=== PATIENT | male | born 1985 | race Caucasian/White ===

== ENCOUNTER 2019-02-04 08:40 | Emergency (ER) | payer MEDICARE, MEDICAID ==
--- NOTE | 2019-02-04 09:11 | EDM.PDOC ---
ED HPI GENERAL MEDICAL PROBLEM - General Chief Complaint: Head Injury Stated Complaint: HIT HEAD, FALL Time Seen by Provider: 02/04/19 08:55 Source of Information: Reports: Patient History Limitations: Reports: No Limitations - History of Present Illness INITIAL COMMENTS - FREE TEXT/NARRATIVE: 34-year-old male who reports that he was working with a friend yesterday and he hit the top of his head against an air conditioning vent at about 11 AM. There was no loss of consciousness. He was a bit dazed. He has had some headache since that time but it was mild. He had no nausea or vomiting or dizziness. This morning and a proximal or 7 AM he was walking and his dog stopped in front of them and the patient hit his head in the same area that he had struck his head yesterday on a speaker. He reports that he felt somewhat dizzy and then the next thing he knows he is laying on the floor about 10 minutes later somewhat dazed with a headache. He has had some nausea but no vomiting. He had some double vision initially but that is resolved. He continues to have dizziness and unsteadiness and he feels as if he might pass out again. No antecedent problems. No chest pain. No shortness of breath. He is rating his headache as a 9/10. It is sharp and throbbing. There is soreness in the area with palpation and he has a small scrape to the area. No localized area of weakness or numbness. He also has some soreness in his posterior neck and see injury. He rates that pain as a 9/10. This is worse with palpation and movement. There are no other associated signs or symptoms. There are no other modifying factors. 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 (see below) (Nothing) top of head Pain Score (Numeric/FACES): 9 - Related Data Allergies Allergy/AdvReac Type Severity Reaction Status Date / Time fentanyl Allergy Unknown unknown Verified 02/04/19 09:02 gabapentin Allergy Unknown unknown Verified 02/04/19 09:02 shellfish derived Allergy Unknown unknown Verified 02/04/19 09:02 varenicline [From Chantix] Allergy Unknown unknown Verified 02/04/19 09:02 Home Meds: Home Meds Meclizine [Antivert] 25 mg PO Q6H PRN #20 tab 02/04/19 [Rx] Promethazine [Phenergan] 25 mg PO Q6H PRN #16 tab 02/04/19 [Rx] amLODIPine [Norvasc] 5 mg PO DAILY 02/04/19 [History] traZODone 100 mg PO PRN 02/04/19 [History] Past Medical History Cardiovascular History: Reports: Hypertension (Also, from the patient's description it sounds like he has vasospastic angina) Psychiatric History: Reports: Other (See Below) (Insomnia) - Past Surgical History Neurological Surgical History: Reports: Spinal Fusion (Anterior cervical fusion) Other Neurological Surgeries/Procedures: Implanted back nerve stimulator Social & Family History - Tobacco Use Smoking Status *Q: Current Every Day Smoker Years of Tobacco use: 30 Packs/Tins Daily: 0.5 - Caffeine Use Caffeine Use: Reports: Coffee, Soda - Alcohol Use Alcohol Use History: Yes Alcohol Use Frequency: Daily - Recreational Drug Use Recreational Drug Use: No - Living Situation & Occupation 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 ED ROS GENERAL - Review of Systems Review Of Systems: See Below Constitutional: Reports: No Symptoms HEENT: Reports: Vision Change (Transient double vision after his injury this morning.) Respiratory: Reports: No Symptoms Cardiovascular: Reports: No Symptoms GI/Abdominal: Reports: Nausea. Denies: Vomiting : Reports: No Symptoms Musculoskeletal: Reports: Neck Pain Skin: Reports: Other (Abrasion on central parietal scalp) Neurological: Reports: Dizziness, Headache, Syncope Hematologic/Lymphatic: Reports: No Symptoms Immunologic: Reports: Other (Last tetanus immunization was greater than 5 years ago.) ED EXAM, HEAD INJURY - Physical Exam Exam: See Below Exam Limited By: No Limitations General Appearance: Alert, WD/WN, Moderate Distress Head: Normocephalic, Scalp Abrasions, Other (No crepitus, depression or bony deformity.) Nexus Criteria: Posterior, Midline Cervical Tenderness, Altered Level of Consciousness (Had loss of consciousness). No: Evidence of Intoxication, Focal Neurological Deficit, Painful Distraction Injuries Eyes: Bilateral Eye: EOMI, Normal Inspection, PERRL Ears: Normal External Exam, Normal Canal, Normal TMs Nose: Normal Inspection, Normal Mucousa, No Blood Throat/Mouth: Normal Inspection, Normal Lips, Normal Oropharynx, Normal Voice, No Airway Compromise Neck: Normal Alignment, Painful Range of Motion, Tender Midline Respiratory: No Respiratory Distress, Lungs Clear, Normal Breath Sounds, No Accessory Muscle Use, Chest Non-Tender Cardiovascular: Normal Peripheral Pulses, Regular Rate, Rhythm, No JVD GI/Abdominal Exam: Normal Bowel Sounds, Soft, Non-Tender, No Mass Back Exam: Normal Inspection Extremities: Normal Inspection, Normal Range of Motion, Non-Tender, No Pedal Edema, Normal Capillary Refill Neurologic: otolaryngology surgeon II-XII nml As Tested, No Motor/Sensory Deficits, Alert, Normal Mood/Affect, Oriented x 3 Skin: Normal Color, Warm/Dry - Wilfredo Coma Score Best Eye Response (Wilfredo): (4) Open Spontaneously Best Verbal Response ([place]): (5) Oriented Best Motor Response (Wilfredo): (6) Obeys Commands Wilfredo Total: 15 EKG INTERPRETATION EKG Date: 02/04/19 Time: 09:26 Rhythm: NSR Rate (Beats/Min): 79 [place]: Normal P-Wave: Present QRS: Normal ST-T: Normal QT: Normal Comparison: NA - No Prior EKG (Essentially normal EKG.) Course - Vital Signs Last Recorded V/S: Last Vital Signs Temp 36.6 C 02/04/19 10:13 Pulse 71 02/04/19 10:13 Resp 14 02/04/19 10:13 BP 111/72 02/04/19 10:13 Pulse Ox 96 02/04/19 10:13 - Orders/Labs/Meds Orders: Active Orders 24 hr Category Date Time Status EKG Documentation Completion [RC] ASDIRECTED Care 02/04/19 09:18 Active Vaccines to be Administered [RC] PER UNIT ROUTINE Care 02/04/19 11:10 Active Cervical Spine wo Cont [CT] Stat Exams 02/04/19 09:17 Taken Head wo Cont [CT] Stat Exams 02/04/19 09:17 Taken Sodium Chloride 0.9% [Saline Flush] Med 02/04/19 09:17 Active 10 ml FLUSH ASDIRECTED PRN Peripheral IV Insertion Adult [OM.PC] Routine Oth 02/04/19 09:17 Ordered EKG 12 Lead [EK] Routine Ther 02/04/19 09:17 Ordered Medication Orders Sodium Chloride (Saline Flush) 10 ml FLUSH ASDIRECTED PRN PRN Reason: Keep Vein Open Last Admin: 02/04/19 11:25 Dose: 10 ml Labs: Laboratory Tests 02/04/19 02/04/19 Range/Units 09:35 09:35 WBC 8.5 (4.5-12.0) X10-3/uL RBC 5.06 (4.30-5.75) x10(6)uL Hgb 15.6 (13.5-17.8) g/dL Hct 46.0 (30.0-51.3) % MCV 90.9 (80-96) fL MCH 30.8 (27.7-33.6) pg MCHC 33.9 (32.2-35.4) g/dL RDW 12.9 (11.5-15.5) % Plt Count 214 (125-369) X10(3)uL MPV 8.0 (7.4-10.4) fL Neut % (Auto) 70.9 (46-82) % Lymph % (Auto) 22.8 (13-37) % [place] % (Auto) 4.9 (4-12) % Eos % (Auto) 1 (1.0-5.0) % Baso % (Auto) 0 (0-2) % Neut # (Auto) 6.1 (1.6-8.3) # Lymph # (Auto) 1.9 (0.6-5.0) # [place] # (Auto) 0.4 (0.0-1.3) # Eos # (Auto) 0.1 (0.0-0.8) # Baso # (Auto) 0.0 (0.0-0.2) # Sodium 144 (135-145) mmol/L Potassium 4.1 (3.5-5.3) mmol/L Chloride 109 (100-110) mmol/L Carbon Dioxide 24 (21-32) mmol/L BUN 16 (7-18) mg/dL Creatinine 1.0 (0.70-1.30) mg/dL Est Cr Clr Drug Dosing 105.07 mL/min Estimated GFR (MDRD) > 60 (>60) BUN/Creatinine Ratio 16.0 (9-20) Glucose 99 (80-116) mg/dL Calcium 8.8 (8.6-10.2) mg/dL Magnesium 2.0 (1.8-2.5) mg/dL Total Bilirubin 0.5 (0.1-1.3) mg/dL AST 28 H (5-25) IU/L ALT 42 H (12-36) U/L Alkaline Phosphatase 81 (56-112) IU/L Total Protein 7.3 (6.0-8.0) g/dL Albumin 4.0 (3.5-5.2) g/dL Globulin 3.3 g/dL Albumin/Globulin Ratio 1.2 Meds: Medications Generic Name Dose Route Start Last Admin Trade Name Freq PRN Reason Stop Dose Admin Sodium Chloride 10 ml 02/04/19 09:17 02/04/19 11:25 Saline Flush FLUSH 10 ml ASDIRECTED PRN Administration Keep Vein Open Discontinued Medications Generic Name Dose Route Start Last Admin Trade Name Freq PRN Reason Stop Dose Admin Diphtheria/Tetanus/Acell Pertussis 0.5 ml 02/04/19 11:10 02/04/19 11:24 Adacel IM 02/04/19 11:11 0.5 ml .ONCE ONE Administration Promethazine HCl 25 mg/ Sodium 51 mls @ 200 mls/hr 02/04/19 09:19 02/04/19 10 :04 Chloride IV 02/04/19 09:34 200 mls/hr ONETIME ONE Administration Sodium Chloride 1,000 mls @ 999 mls/hr 02/04/19 09:19 02/04/19 10:04 Normal Saline IV 02/04/19 10:19 999 mls/hr .BOLUS ONE Administration Ketorolac Tromethamine 30 mg 02/04/19 11:14 02/04/19 11:23 Toradol IVPUSH 02/04/19 11:15 30 mg ONETIME ONE Administration Meclizine HCl 25 mg 02/04/19 11:16 02/04/19 11:24 Antivert PO 02/04/19 11:17 25 mg ONETIME ONE Administration - Radiology Interpretation Free Text/Narrative:: CT scan of head shows no acute abnormality per the [facility] radiologist. CT scan of cervical spine shows previous anterior cervical fusion but no acute abnormality per the [facility] radiologist. - Re-Assessments/Exams Free Text/Narrative Re-Assessment/Exam: 02/04/19 11:15: The patient has remained vitally stable while in the emergency department. CT scans of his head and cervical spine show no acute abnormality and his blood tests are reassuringly normal. His EKG was also normal. Patient has ambulated but was still with some dizziness and unsteadiness. He reports his pain is now a 7-8/10. I will give the patient meclizine PO and Toradol 30 mg IV. 02/04/19 11:40: Patient resting comfortably on the stretcher. His dizziness is much improved. His pain is improved. The plan will be to discharge the patient with scheduled for Zofran and meclizine. He is to take Tylenol and ibuprofen as needed for pain. I have advised him no strenuous activity for the next 2 weeks. Departure - Departure Time of Disposition: 11:45 Disposition: Home, Self-Care 01 Condition: Good Clinical Impression: Concussion with less than 1 hour loss of consciousness, Postconcussive syndrome Scalp abrasion Qualifiers: Encounter type: initial encounter Qualified Code(s): S00.01XA - Abrasion of scalp, initial encounter Head contusion Qualifiers: Encounter type: initial encounter Contusion of head detail: scalp Qualified Code(s): S00.03XA - Contusion of scalp, initial encounter Neck strain Qualifiers: Encounter type: initial encounter Qualified Code(s): S16.1XXA - Strain of muscle, fascia and tendon at neck level, initial encounter - Discharge Information Prescriptions: Meclizine [Antivert] 25 mg PO Q6H PRN #20 tab PRN Reason: Dizziness Promethazine [Phenergan] 25 mg PO Q6H PRN #16 tab PRN Reason: Nausea or dizziness Instructions: Contusion, [id number], Head Injury, Adult, [id number], Cervical Sprain, [id number], Concussion, Adult, [id number], Post-Concussion Syndrome, [id number] Referrals: PCP,Not In Area [Primary Care Provider] - Forms: ED Department Discharge Additional Instructions: Your blood tests were reassuringly normal. Your EKG was normal. The CT scans of your head and neck showed no acute abnormalities. As we discussed, you have had a concussion. The symptoms that you are experiencing are related to the concussion with postconcussive syndrome. You should rest. You should drink plenty of fluids. No strenuous activity for the next 2 weeks. Follow-up with your primary doctor as needed. Take ibuprofen and Tylenol as needed for pain. Medication as prescribed (meclizine 25 mg, Phenergan 25 mg). Back to the emergency department for unrelenting vomiting, marked increase in pain or any other concerning sign or symptom. You were given a Tdap Immunization today to bring your tetanus immunization status up-to-date. - My Orders Last 24 Hours: My Active Orders 02/04/19 09:17 Cervical Spine wo Cont [CT] Stat Head wo Cont [CT] Stat Sodium Chloride 0.9% [Saline Flush] 10 ml FLUSH ASDIRECTED PRN Peripheral IV Insertion Adult [OM.PC] Routine EKG 12 Lead [EK] Routine 02/04/19 09:18 EKG Documentation Completion [RC] ASDIRECTED 02/04/19 11:10 Vaccines to be Administered [RC] PER UNIT ROUTINE - Assessment/Plan Last 24 Hours: My Active Orders 02/04/19 09:17 Cervical Spine wo Cont [CT] Stat Head wo Cont [CT] Stat Sodium Chloride 0.9% [Saline Flush] 10 ml FLUSH ASDIRECTED PRN Peripheral IV Insertion Adult [OM.PC] Routine EKG 12 Lead [EK] Routine 02/04/19 09:18 EKG Documentation Completion [RC] ASDIRECTED 02/04/19 11:10 Vaccines to be Administered [RC] PER UNIT ROUTINE
[2019-02-04] MEDS ORDERED: Sodium Chloride 0.9% 10 ML Syringe FLUSH PRN (09:17)
[2019-02-04] MEDS ORDERED: Promethazine 25 MG in Sodium Chloride 0.9% 50 ML IV ONE (09:19)
[2019-02-04] MEDS ORDERED: Sodium Chloride 0.9% 1,000 ML IV ONE (09:19)
[2019-02-04] MEDS ORDERED: Diphtheria,Pertussis(Acell),Tetanus Vaccine 0.5 ML SDV IM ONE (11:10)
[2019-02-04] MEDS ORDERED: Ketorolac 30 MG/ML SDV IVPUSH ONE (11:14)
[2019-02-04] MEDS ORDERED: Meclizine 25 MG Tab PO ONE (11:16)
== END 2019-02-04 12:05 | disposition home or self-care (01) ==
LOC: FB.ED 08:40
DX: S06.0X9A Concussion with loss of consciousness of unspecified duration, initial encounter (principal); S16.1XXA Strain of muscle, fascia and tendon at neck level, initial encounter; S00.03XA Contusion of scalp, initial encounter; F17.210 Nicotine dependence, cigarettes, uncomplicated; I10 Essential (primary) hypertension; Z79.899 Other long term (current) drug therapy; Z88.8 Allergy status to other drugs, medicaments and biological substances; Z91.013 Allergy to seafood; Z23 Encounter for immunization; W22.8XXA Striking against or struck by other objects, initial encounter
CPT/HCPCS: 36415; 70450; 72125; 80053; 83735; 85025; 90471; 90715; 93005; 96361; 96365; 96375; 99284; A9270; J1885; J2550; J7030; J7050; 93010

== ENCOUNTER 2019-03-29 07:49 | Emergency (ER) | payer MEDICARE, MEDICAID ==
--- NOTE | 2019-03-29 09:40 | EDM.PDOC ---
ED HPI GENERAL MEDICAL PROBLEM - General Chief Complaint: Upper Extremity Injury/Pain Stated Complaint: SHOULDER PAIN Time Seen by Provider: 03/29/19 08:45 Source of Information: Reports: Patient History Limitations: Reports: No Limitations - History of Present Illness INITIAL COMMENTS - FREE TEXT/NARRATIVE: patient is a pleasant 34-year-old male who presents today with concern for pain in his left shoulder over the past month. He reports that one month ago he fell on it, backwards landing on an outstretched hand. He had immediate pain in his shoulder at this time but did not seek any medical care for. He also notes that he walks his dog regularly and the pulls on that side with his leash. 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 He over the last 2 days had to take 4 of ibuprofen up to 3 times a day with no relief. He also notes that his shoulder is locking up and he is having difficulty raising it. Past history of a ACDF, not sure which levels but maybe he thinks 5-7. Also has a nerve stimulator for low pack pain. Recently transferred to the area from [facility], regular tobacco use, occasional social alcohol, no other drug use. 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 Respiratory History: Reports: COPD Musculoskeletal History: Reports: Back Pain, Chronic, Neck Pain, Chronic Neurological History: Reports: Head Trauma Psychiatric History: Reports: Other (See Below) (Insomnia) - Infectious Disease History Infectious Disease History: Reports: Chicken Pox - Past Surgical History Respiratory Surgical History: Reports: None Neurological Surgical History: Reports: Spinal Fusion Other Neurological Surgeries/Procedures: Implanted back nerve stimulator Musculoskeletal Surgical History: Reports: Shoulder Surgery, Other (See Below) Other Musculoskeletal Surgeries/Procedures:: right rotator cuff, nerve stimulator in back Social & Family History - Family History Cardiac: Reports: Angina - Tobacco Use Smoking Status *Q: Current Every Day Smoker - Caffeine Use Caffeine Use: Reports: Coffee, Soda - Alcohol Use Alcohol Use History: Yes Total Drinks Per Week Comment: social - Recreational Drug Use Recreational Drug Use: No - Living Situation & Occupation 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 ED EXAM, GENERAL - Physical Exam Exam: See Below Free Text/Narrative:: Gen.: Alert, pleasant no acute distress. Neck range of motion is limited, particularly with any side bending towards the right but does not exacerbate really any of his arm symptoms. He has very limited mobility in his left shoulder and very much difficulty relaxing and that all for passive motion testing. He is able to flex and extend his fingers, flex and extend his wrist, ABduct his fingers, resisted elbow flexion and extension without much difficulty although it does elicit some pain. He is not able to ABduct against any resistance or passively raise his arm more than about 30. He is not able to tolerate any passive ROM of shoulder. He is able to internally rotate with no resistance but with minimal pain, all other motions cause significant pain. Course - Vital Signs Text/Narrative:: patient with acute on chronic shoulder pain likely related to injury and altered mechanics. Possible rotator cuff tear given presentation today. xray does not show any acute bony abnormalities. recommend off work this week, anti- inflammatories, heat or ice as feels better, and reevaluation towards the end of the week or early next week. Strongly encouraged physical therapy, further management to be determined by follow-up physician. He has a sling at home which she can use if he wants for comfort when moving around. He does not have any muscular weakness on exam today or any atrophy, I think the numbness in his fingertips is related to mechanics and will hopefully resolve as inflammation decreases. He was in agreement with this plan and had no further questions. Last Recorded V/S: Last Vital Signs Temp 36.8 C 03/29/19 07:49 Pulse 97 03/29/19 07:49 Resp 18 03/29/19 07:49 BP 117/73 03/29/19 07:49 Pulse Ox 96 03/29/19 07:49 - Orders/Labs/Meds Orders: Active Orders 24 hr Category Date Time Status Shoulder Comp Lt [CR] Stat Exams 03/29/19 08:50 Taken Departure - Departure Time of Disposition: 09:35 Disposition: Home, Self-Care 01 Condition: Good Clinical Impression: Sprain of shoulder - Discharge Information *PRESCRIPTION DRUG MONITORING PROGRAM REVIEWED*: Yes *COPY OF PRESCRIPTION DRUG MONITORING REPORT IN PATIENT TURNER: No Instructions: Shoulder Sprain Referrals: PCP,None [Primary Care Provider] - Forms: ED Department Discharge, ED Return to Work/School Form Additional Instructions: can take ibuprofen 600-800mg (3-4 tabs) up to three times per day as long as no heartburn ok to take tylenol per bottle instructions along with this if needed ice 20 min as often as need (every 1-3 hours) warmth ok - shower is usually the best work note provided - need followup prior to returning sling as needed for comfort, but have out of sling when moving around a little to help keep from freezing joint NO LIFTING OR PULLING anything heavier than a pencil (need to walk dog with other arm) followup or Friday with PCP - see information given - My Orders Last 24 Hours: My Active Orders 03/29/19 08:50 Shoulder Comp Lt [CR] Stat - Assessment/Plan Last 24 Hours: My Active Orders 03/29/19 08:50 Shoulder Comp Lt [CR] Stat
--- NOTE | 2019-03-30 09:30 | CR ---
INDICATION: One month of pain, fall, limited mobility. LEFT SHOULDER: Four views of the left shoulder were obtained, 03/29/19, and revealed no evidence of a fracture, dislocation, or other significant bone or joint abnormality. Adjacent ribs were intact. If symptoms persist, if occult abnormality is suspected clinically, additional examination such as MRI of the shoulder may be helpful. MTDD
== END 2019-03-29 10:22 | disposition home or self-care (01) ==
LOC: FB.ED 07:49
DX: S43.402A Unspecified sprain of left shoulder joint, initial encounter (principal); I10 Essential (primary) hypertension; F17.210 Nicotine dependence, cigarettes, uncomplicated; Z91.013 Allergy to seafood; Z88.8 Allergy status to other drugs, medicaments and biological substances; Z79.899 Other long term (current) drug therapy; W19.XXXA Unspecified fall, initial encounter
CPT/HCPCS: 73030-LT; 99283-25

== ENCOUNTER 2019-07-26 12:46 | Emergency (ER) | payer MEDICARE, MEDICAID ==
[2019-07-26] MEDS ORDERED: Aspirin 81 MG Tab.Chew PO ONE (12:55)
[2019-07-26] MEDS ORDERED: Ketorolac 60 MG/2 ML SDV IM ONE (13:04)
--- NOTE | 2019-07-26 13:52 | EDM.PDOC ---
ED HPI GENERAL MEDICAL PROBLEM - General Stated Complaint: CHEST PAIN Time Seen by Provider: 07/26/19 12:50 Source of Information: Reports: Patient History Limitations: Reports: No Limitations - History of Present Illness INITIAL COMMENTS - FREE TEXT/NARRATIVE: Patient presented to the ED because of left sided chest pain which started this morning. The pain is ahrp,4/10 and worse with coughing and movements. There is no associated, N/V dyspnea or diaphoresis. chest pain Pain Score (Numeric/FACES): 10 - Related Data Allergies Allergy/AdvReac Type Severity Reaction Status Date / Time fentanyl Allergy Unknown unknown Verified 06/23/19 10:07 gabapentin Allergy Unknown unknown Verified 06/23/19 10:07 shellfish derived Allergy Unknown unknown Verified 06/23/19 10:07 varenicline [From Chantix] Allergy Unknown unknown Verified 06/23/19 10:07 Home Meds: Home Meds Promethazine [Phenergan] 25 mg PO Q6H PRN #16 tab 02/04/19 [Rx] amLODIPine [Norvasc] 5 mg PO DAILY 02/04/19 [History] Naproxen 500 mg PO BID #15 tablet 07/26/19 [Rx] Past Medical History Cardiovascular History: Reports: Hypertension 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 Respiratory History: Reports: COPD Musculoskeletal History: Reports: Back Pain, Chronic, Neck Pain, Chronic Neurological History: Reports: Head Trauma Psychiatric History: Reports: Other (See Below) (Insomnia) - Infectious Disease History Infectious Disease History: Reports: Chicken Pox - Past Surgical History Respiratory Surgical History: Reports: None Neurological Surgical History: Reports: Spinal Fusion Other Neurological Surgeries/Procedures: Implanted back nerve stimulator Musculoskeletal Surgical History: Reports: Shoulder Surgery, Other (See Below) Other Musculoskeletal Surgeries/Procedures:: right rotator cuff, nerve stimulator in back Social & Family History - Family History Cardiac: Reports: Angina - Caffeine Use Caffeine Use: Reports: Coffee, Soda - Living Situation & Occupation 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 GENERAL - Review of Systems Review Of Systems: See Below Constitutional: Reports: No Symptoms HEENT: Reports: No Symptoms Respiratory: Reports: Cough Cardiovascular: Reports: Chest Pain Endocrine: Reports: No Symptoms GI/Abdominal: Reports: No Symptoms : Reports: No Symptoms Musculoskeletal: Reports: No Symptoms Skin: Reports: No Symptoms Neurological: Reports: No Symptoms Psychiatric: Reports: No Symptoms Hematologic/Lymphatic: Reports: No Symptoms Immunologic: Reports: No Symptoms ED EXAM, GENERAL - Physical Exam Exam: See Below Exam Limited By: No Limitations General Appearance: Alert, WD/WN, No Apparent Distress Ears: Normal External Exam, Normal Canal Nose: Normal Inspection, Normal Mucosa Throat/Mouth: Normal Inspection, Normal Lips, Normal Teeth Head: Atraumatic, Normocephalic Neck: Normal Inspection, Supple, Non-Tender Respiratory/Chest: No Respiratory Distress, Lungs Clear, Normal Breath Sounds, No Accessory Muscle Use, Other (tenderness left chest wall) Cardiovascular: Normal Peripheral Pulses, Regular Rate, Rhythm, No Edema, No Gallop, No JVD, No Murmur, No Rub GI/Abdominal: Normal Bowel Sounds, Soft, Non-Tender, No Organomegaly, No Distention, No Abnormal Bruit, No Mass, Pelvis Stable Back Exam: Normal Inspection, Full Range of Motion Extremities: Normal Inspection, Normal Range of Motion, Non-Tender Neurological: Alert, Oriented, CN II-XII Intact, Normal Cognition, Normal Gait, Normal Reflexes, No Motor/Sensory Deficits Course - Vital Signs Text/Narrative:: labs,EKG was discussed with the patient and verbalized full understanding EKG-NSR Trop-neg toradol 60 mg IM x1 with significant relief of his pain ASA 324 mg po x1 Last Recorded V/S: Last Vital Signs Temp 36.7 C 07/26/19 13:45 Pulse 95 07/26/19 13:45 Resp 15 07/26/19 13:45 BP 122/78 07/26/19 13:45 Pulse Ox 98 07/26/19 12:46 - Orders/Labs/Meds Orders: Active Orders 24 hr Category Date Time Status EKG Documentation Completion [RC] ASDIRECTED Care 07/26/19 12:54 Active EKG 12 Lead [EK] Routine Ther 07/26/19 12:54 Ordered Labs: Laboratory Tests 07/26/19 07/26/19 07/26/19 Range/Units 13:05 13:05 13:05 WBC 7.8 (4.5-12.0) X10-3/uL RBC 5.24 (4.30-5.75) x10(6)uL Hgb 16.0 (13.5-17.8) g/dL Hct 47.9 (30.0-51.3) % MCV 91.5 (80-96) fL MCH 30.6 (27.7-33.6) pg MCHC 33.5 (32.2-35.4) g/dL RDW 12.9 (11.5-15.5) % Plt Count 272 (125-369) X10(3)uL MPV 8.0 (7.4-10.4) fL Neut % (Auto) 56.6 (46-82) % Lymph % (Auto) 35.2 (13-37) % Wharton % (Auto) 6.9 (4-12) % Eos % (Auto) 1 (1.0-5.0) % Baso % (Auto) 0 (0-2) % Neut # (Auto) 4.5 (1.6-8.3) # Lymph # (Auto) 2.7 (0.6-5.0) # Wharton # (Auto) 0.5 (0.0-1.3) # Eos # (Auto) 0.1 (0.0-0.8) # Baso # (Auto) 0.0 (0.0-0.2) # Sodium 144 (135-145) mmol/L Potassium 4.4 (3.5-5.3) mmol/L Chloride 106 (100-110) mmol/L Carbon Dioxide 28 (21-32) mmol/L BUN 16 (7-18) mg/dL Creatinine 1.0 (0.70-1.30) mg/dL Est Cr Clr Drug Dosing TNP Estimated GFR (MDRD) > 60 (>60) BUN/Creatinine Ratio 16.0 (9-20) Glucose 112 (80-116) mg/dL Calcium 10.1 (8.6-10.2) mg/dL Troponin I < 0.017 L (<0.017-0.056) ng/mL Meds: Medications Discontinued Medications Generic Name Dose Route Start Last Admin Trade Name Piyushq PRN Reason Stop Dose Admin Aspirin 324 mg 07/26/19 12:55 07/26/19 13:10 Aspirin PO 07/26/19 12:56 324 mg ONETIME ONE Administration Ketorolac Tromethamine 60 mg 07/26/19 13:04 07/26/19 13:11 Toradol IM 07/26/19 13:05 60 mg ONETIME ONE Administration Departure - Departure Time of Disposition: 13:50 Disposition: Home, Self-Care 01 Condition: Good Clinical Impression: Atypical chest pain Prescriptions: Naproxen 500 mg PO BID #15 tablet Instructions: Nonspecific Chest Pain Referrals: Marguerite Plascencia NP [Primary Care Provider] - Forms: ED Department Discharge Additional Instructions: please read discahrge instructions on atypical chest pain naproxen 500 mg twice daily for 7 days follow up if symptoms persist Sepsis Event Note - Focused Exam Vital Signs: Vital Signs Temp Pulse Resp BP Pulse Ox 07/26/19 13:45 36.7 C 95 15 122/78 07/26/19 12:46 36.7 C 101 H 17 137/79 98 Date Exam was Performed: 07/26/19 Time Exam was Performed: 16:10 - My Orders Last 24 Hours: My Active Orders 07/26/19 12:54 EKG Documentation Completion [RC] ASDIRECTED EKG 12 Lead [EK] Routine - Assessment/Plan Last 24 Hours: My Active Orders 07/26/19 12:54 EKG Documentation Completion [RC] ASDIRECTED EKG 12 Lead [EK] Routine
== END 2019-07-26 14:02 | disposition home or self-care (01) ==
LOC: FB.ED 12:46
DX: R07.89 Other chest pain (principal); I10 Essential (primary) hypertension; J44.9 Chronic obstructive pulmonary disease, unspecified; Z79.899 Other long term (current) drug therapy; Z88.6 Allergy status to analgesic agent; Z88.8 Allergy status to other drugs, medicaments and biological substances; Z91.013 Allergy to seafood
CPT/HCPCS: 36415; 80048; 84484; 85025; 93005; 96372; 99285; A9270; J1885; 93010; 99283

== ENCOUNTER 2021-03-30 20:19 | Emergency (ER) | payer MEDICARE, MEDICAID ==
--- NOTE | 2021-03-30 22:23 | EDM.PDOC ---
ED HPI GENERAL MEDICAL PROBLEM - General Chief Complaint: Lower Extremity Injury/Pain Stated Complaint: LEFT ANKLE/FOOT INJURY Time Seen by Provider: 03/30/21 21:12 Source of Information: Reports: Patient History Limitations: Reports: No Limitations - History of Present Illness INITIAL COMMENTS - FREE TEXT/NARRATIVE: Patient states he was trying to climb down out of his pickup truck and his shorts got stuck on the truck and he fell onto his left foot/ankle. He had immediate pain. He was able to bear some weight on his foot immediately but significant difficulty. The fall and injury happened at approximately 1130 this morning. He came to the emergency department around 1900. States he did continue to do some work but the pain got so bad he could not bear it anymore. He tried taking ibuprofen with no relief. Denies all other review of systems any fever, chills, flulike symptoms, cough, upper respiratory symptoms, chest pain, change in bowel or bladder habits. 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 Pain Score (Numeric/FACES): 10 - Related Data Allergies Allergy/AdvReac Type Severity Reaction Status Date / Time fentanyl Allergy Unknown unknown Verified 06/23/19 10:07 gabapentin Allergy Unknown unknown Verified 06/23/19 10:07 shellfish derived Allergy Unknown unknown Verified 06/23/19 10:07 varenicline [From Chantix] Allergy Unknown unknown Verified 06/23/19 10:07 Influenza Virus Vaccines Allergy Other Verified 03/30/21 20:41 Home Meds: Home Meds amLODIPine [Norvasc] 5 mg PO BEDTIME 02/04/19 [History] Albuterol [Ventolin HFA] 2 puff .XX Q4H PRN 03/30/21 [History] Fluticasone Propionate [Flonase Allergy Relief] 2 spray NS BEDTIME 03/30/21 [History] buPROPion HCL [Bupropion Xl] 150 mg BID 03/30/21 [History] diphenhydrAMINE [Benadryl] 25 mg PO BEDTIME PRN 03/30/21 [History] Past Medical History Cardiovascular History: Reports: Hypertension 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 Respiratory History: Reports: COPD Musculoskeletal History: Reports: Back Pain, Chronic, Neck Pain, Chronic Neurological History: Reports: Head Trauma Psychiatric History: Reports: Other (See Below) (Insomnia) - Infectious Disease History Infectious Disease History: Reports: Chicken Pox - Past Surgical History Respiratory Surgical History: Reports: None Neurological Surgical History: Reports: Spinal Fusion Other Neurological Surgeries/Procedures: Implanted back nerve stimulator Musculoskeletal Surgical History: Reports: Shoulder Surgery, Other (See Below) Other Musculoskeletal Surgeries/Procedures:: right rotator cuff, nerve stimulator in back Social & Family History - Family History Cardiac: Reports: Angina - Caffeine Use Caffeine Use: Reports: Coffee, Soda - Living Situation & Occupation 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) Review of Systems - Review of Systems Review Of Systems: See Below Constitutional: Reports: No Symptoms Eyes: Reports: No Symptoms Ears: Reports: No Symptoms Nose: Reports: No Symptoms Mouth/Throat: Reports: No Symptoms Respiratory: Reports: No Symptoms Cardiovascular: Reports: No Symptoms GI/Abdominal: Reports: No Symptoms Genitourinary: Reports: No Symptoms Musculoskeletal: Reports: Leg Pain, Foot Pain Skin: Reports: No Symptoms Neurological: Reports: No Symptoms Psychiatric: Reports: No Symptoms ED EXAM, GENERAL - Physical Exam Exam: See Below Free Text/Narrative:: Visual inspection of the bilateral ankles and feet shows significant swelling, erythema, mild ecchymosis of the left ankle more so over the lateral malleolus and just inferior and anterior to the lateral malleolus. Bilateral active range of motion is limited on the left secondary to pain. Bilateral passive range of motion shows restrictive motion on the left secondary to pain and swelling. Squeeze test is positive on the left. There is significant tenderness to palpation over the bony prominence of the lateral malleolus and navicular Exam Limited By: No Limitations General Appearance: Alert, No Apparent Distress Eye Exam: Bilateral Eye: EOMI Neck: Normal Inspection Respiratory/Chest: No Respiratory Distress, Lungs Clear Cardiovascular: Normal Peripheral Pulses, Regular Rate, Rhythm, No Edema, No Murmur Peripheral Pulses: 2+: Radial (L), Radial (R), Dorsalis Pedis (L), Dorsalis Pedis (R) GI/Abdominal: Normal Bowel Sounds, Non-Tender Back Exam: Normal Inspection Extremities: Joint Swelling Neurological: Alert, Oriented, CN II-XII Intact, Normal Cognition Psychiatric: Normal Mood Skin Exam: Warm, Dry, Intact Course - Vital Signs Text/Narrative:: Review of x-rays of left ankle/foot are negative. Patient will be given an Jcarlos wrap and a walking boot discharged home. Last Recorded V/S: Last Vital Signs Temp 37.8 C 03/30/21 20:35 Pulse 119 H 03/30/21 20:35 Resp 20 03/30/21 20:35 BP 130/90 03/30/21 20:35 Pulse Ox 96 03/30/21 20:35 - Orders/Labs/Meds Orders: Active Orders 24 hr Category Date Time Status Ankle Min 3V Lt [CR] Stat Exams 03/30/21 21:40 Ordered Departure - Departure Time of Disposition: 22:28 Disposition: Home, Self-Care 01 Condition: Good Clinical Impression: Left ankle sprain - Discharge Information *PRESCRIPTION DRUG MONITORING PROGRAM REVIEWED*: Not Applicable *COPY OF PRESCRIPTION DRUG MONITORING REPORT IN PATIENT TURNER: Not Applicable Instructions: Ankle Sprain, [id number] Referrals: Jim Jerez MD [Primary Care Provider] - Additional Instructions: Patient instructed to rest, ice, elevate, compress, alternate Tylenol and ibuprofen. Patient instructed to try to stay off of his foot. Patient instructed to follow-up with his primary care provider. Sepsis Event Note (ED) - Evaluation Sepsis Screening Result: No Definite Risk - Focused Exam Vital Signs: Vital Signs Temp Pulse Resp BP Pulse Ox 03/30/21 20:35 37.8 C 119 H 20 130/90 96 - My Orders Last 24 Hours: My Active Orders 03/30/21 21:40 Ankle Min 3V Lt [CR] Stat - Assessment/Plan Last 24 Hours: My Active Orders 03/30/21 21:40 Ankle Min 3V Lt [CR] Stat
--- NOTE | 2021-04-02 10:45 | CR ---
LEFT ANKLE INDICATION: Fall, pain and swelling. FINDINGS: Three views of the left ankle were obtained 03/30/21 - no comparison. Soft tissue swelling is noted overlying the lateral malleolus. An acute fracture, dislocation or other significant bone or joint abnormality was not identified. Talar dome appears intact. The ankle mortise joint space appears to be fairly symmetrical. If symptoms persist- if occult fracture site is suspected clinically, reexamination in 10-14 days may be helpful. [facility]
== END 2021-03-30 22:42 | disposition home or self-care (01) ==
LOC: FB.ED 20:19
DX: S93.402A Sprain of unspecified ligament of left ankle, initial encounter (principal); I10 Essential (primary) hypertension; J44.9 Chronic obstructive pulmonary disease, unspecified; Z88.6 Allergy status to analgesic agent; Z91.013 Allergy to seafood; Z88.8 Allergy status to other drugs, medicaments and biological substances; Z88.7 Allergy status to serum and vaccine; Z79.899 Other long term (current) drug therapy; W18.30XA Fall on same level, unspecified, initial encounter
CPT/HCPCS: 73610-LT; 99283-25

== ENCOUNTER 2021-09-10 12:44 | Emergency (ER) | payer MEDICARE, MEDICAID ==
[2021-09-10] MEDS ORDERED: Sodium Chloride 0.9% 10 ML Syringe FLUSH PRN (13:18)
[2021-09-10] MEDS ORDERED: Sodium Chloride 0.9% 1,000 ML IV SCH (13:30)
[2021-09-10] MEDS ORDERED: Diatrizoate Meglumine/Diatrizoate Sodium 37% 30 ML Bottle PO ONE (14:58)
[2021-09-10] MEDS ORDERED: Iopamidol 755 MG/ML 150 ML Bottle IV ONE (14:58)
== END 2021-09-10 17:03 | disposition home or self-care (01) ==
LOC: FB.ED 12:44
DX: K62.5 Hemorrhage of anus and rectum (principal); J44.9 Chronic obstructive pulmonary disease, unspecified; K21.9 Gastro-esophageal reflux disease without esophagitis; E66.9 Obesity, unspecified; Z68.34 Body mass index [BMI] 34.0-34.9, adult; Z72.0 Tobacco use; Z91.013 Allergy to seafood; Z88.7 Allergy status to serum and vaccine; Z88.8 Allergy status to other drugs, medicaments and biological substances
CPT/HCPCS: 36415; 74177; 80053; 81001; 82150; 83690; 85025; 85610; 85730; 87045; 87046; 87177; 87209; 87230; 87427; 99284-25; J7030; Q9963; Q9967

== ENCOUNTER 2022-06-11 21:42 | Emergency (ER) | payer MEDICARE, MEDICAID ==
[2022-06-11] MEDS ORDERED: predniSONE 20 MG Tab PO ONE (21:43)
[2022-06-11] MEDS ORDERED: Lidocaine 2% Viscous Solution 15 ML UD PO ONE ×2 (22:10→22:11)
[2022-06-11] MEDS ORDERED: Lidocaine 2% Viscous Solution 15 ML UD ONE (22:11)
== END 2022-06-11 22:46 | disposition home or self-care (01) ==
LOC: FB.ED 21:42
DX: T65.891A Toxic effect of other specified substances, accidental (unintentional), initial encounter (principal); L25.3 Unspecified contact dermatitis due to other chemical products; I10 Essential (primary) hypertension; J44.9 Chronic obstructive pulmonary disease, unspecified; E66.9 Obesity, unspecified; Z68.30 Body mass index [BMI] 30.0-30.9, adult; Z88.6 Allergy status to analgesic agent; Z91.013 Allergy to seafood; Z88.7 Allergy status to serum and vaccine; Z88.8 Allergy status to other drugs, medicaments and biological substances; Z79.899 Other long term (current) drug therapy
CPT/HCPCS: 99282; A9270; J7512

== ENCOUNTER 2024-02-01 17:57 | Emergency (ER) | payer MEDICARE, MEDICAID ==
[2024-02-01] MEDS ORDERED: Sodium Chloride 0.9% 10 ML Syringe FLUSH PRN (18:15)
[2024-02-01] MEDS: Sodium Chloride 0.9% 1,000 ML IV ONE (18:32)
[2024-02-01] MEDS: Ondansetron 4 MG/2 ML SDV IVPUSH ONE ×2 (18:32→20:26)
[2024-02-01] MEDS: Ketorolac 15 MG/ML SDV IVPUSH ONE (18:38)
[2024-02-01 18:49] LABS: BLOOD UREA NITROGEN,BUN 16 mg/dL (7-18); CALCIUM 8.5 mg/dL (8.6-10.2); CARBON DIOXIDE,CO2 22 mmol/L (21-32); CHLORIDE,CL 104 mmol/L (100-110); ESTIMATED GFR 99 mL/min (>60); GLUCOSE RANDOM 130 mg/dL (80-116); POTASSIUM,K 3.9 mmol/L (3.5-5.3); SODIUM,NA 140 mmol/L (135-145)
[2024-02-01 18:51] LABS: BASOPHILS PERCENT AUTO 0.3 % (0.3-3.8); EOSINOPHILS ABSOLUTE AUTO 0.1 x10-3/uL (0.0-0.6); EOSINOPHILS PERCENT AUTO 1.7 % (0.1-6.8); HEMATOCRIT 45.7 % (38.3-50.1); HEMOGLOBIN 15.9 g/dL (12.9-17.7); LYMPHOCYTES ABSOLUTE AUTO 3.4 x10-3/uL (0.5-4.5); LYMPHOCYTES PERCENT AUTO 39.9 % (15.8-45.3); MEAN CORPUSCULAR HGB CONC 34.8 g/dL (28.7-35.3); MEAN CORPUSCULAR VOLUME 89.1 fL (80.8-98.7); MEAN PLATELET VOLUME 9.1 fL (6.7-11.0); MONOCYTES ABSOLUTE AUTO 0.6 x10-3/uL (0.0-1.2); MONOCYTES PERCENT AUTO 6.8 % (5.5-15.2); NEUTROPHILS ABSOLUTE AUTO 4.4 x10-3/uL (1.7-6.9); NEUTROPHILS PERCENT AUTO 51.3 % (40.3-71.8); PLATELET COUNT,PLT 226 x10(3)uL (117-477); RED BLOOD CELL COUNT 5.13 x10(6)uL (3.90-5.90); RED CELL DISTRIBUTION WIDTH 13.7 % (12.4-15.0); WHITE BLOOD CELL COUNT,WBC 8.6 x10-3/uL (3.2-10.1)
[2024-02-01 18:53] LABS: BILIRUBIN,URINE NEGATIVE (NEGATIVE); GLUCOSE,URINE NORMAL (NORMAL); KETONES,URINE NEGATIVE (NEGATIVE); LEUKOCYTE ESTERASE,URINE NEGATIVE (NEGATIVE); NITRITE,URINE NEGATIVE (NEGATIVE); OCCULT BLOOD,URINE NEGATIVE (NEGATIVE); PROTEIN,URINE NEGATIVE (NEGATIVE); UROBILINOGEN,URINE NORMAL (NEGATIVE)
[2024-02-01 18:55] LABS: A/G RATIO 1.1; ALANINE AMINOTRANSFERASE,ALT 113 U/L (12-36); ALBUMIN 3.8 g/dL (3.5-5.2); ALKALINE PHOSPHATASE 105 IU/L (56-112); ASPARTATE AMNIOTRANSFERASE,AST 72 IU/L (5-25); BILIRUBIN TOTAL 0.5 mg/dL (0.1-1.3); PROTEIN TOTAL,TP 7.4 g/dL (6.0-8.0)
[2024-02-01 19:00] LABS: APPEARANCE,URINE CLEAR (CLEAR); COLOR,URINE YELLOW (YELLOW)
[2024-02-01 19:01] LABS: BACTERIA,URINE FEW (NS); SQUAMOUS EPITHELIAL CELLS,UR OCCASIONAL (NS,R,O); WBC,URINE 0-5 (0-5)
[2024-02-01] MEDS: Dicyclomine 10 MG Cap PO ONE (20:26)
== END 2024-02-01 20:46 | disposition home or self-care (01) ==
LOC: FB.ED 17:57
DX: K52.9 Noninfective gastroenteritis and colitis, unspecified (principal); K76.0 Fatty (change of) liver, not elsewhere classified; R94.5 Abnormal results of liver function studies; I10 Essential (primary) hypertension; J44.9 Chronic obstructive pulmonary disease, unspecified; K21.9 Gastro-esophageal reflux disease without esophagitis; Z88.8 Allergy status to other drugs, medicaments and biological substances; Z91.013 Allergy to seafood; Z88.7 Allergy status to serum and vaccine; Z79.51 Long term (current) use of inhaled steroids; Z79.899 Other long term (current) drug therapy
CPT/HCPCS: 36415; 74176; 80053; 81001; 83605; 83690; 85025; 86140; 87230; 96361; 96374; 96375; 96376; 99284; A9270; J1885; J2405; J7030

== ENCOUNTER 2025-04-09 19:29 | Emergency (ER) | payer MEDICARE, MEDICAID | END 2025-04-09 20:00 | disposition home or self-care (01) | LOC: FB.ED 19:29 | DX: T15.92XA Foreign body on external eye, part unspecified, left eye, initial encounter (principal); I10 Essential (primary) hypertension; J44.9 Chronic obstructive pulmonary disease, unspecified; K21.9 Gastro-esophageal reflux disease without esophagitis; F17.210 Nicotine dependence, cigarettes, uncomplicated; Z88.6 Allergy status to analgesic agent; Z88.7 Allergy status to serum and vaccine; Z91.013 Allergy to seafood; Z88.8 Allergy status to other drugs, medicaments and biological substances; Z79.899 Other long term (current) drug therapy; W44.8XXA Other foreign body entering into or through a natural orifice, initial encounter; Y93.89 Activity, other specified | CPT/HCPCS: 65205; 99283-25 ==